=== PATIENT | female | born 1940 | race Caucasian/White ===

== ENCOUNTER → 2016-07-25 | Outpatient (CLI) | payer MEDICARE ==
[~2016-07-25] MED LIST: BENADRYL CRM, 230 GM TP; ECOTRIN-DPS325 MG PO; LOPRESSOR DPS50 MG PO; MIRALAX PACKET17 GM PO; PROTONIX40 MG PO; RANEXA500 MG PO; SENOKOT S1 TAB PO; TYLENOL DPS325 MG PO; ULTRAM DPS50 MG PO; XANAX DPS0.5 MG PO
== END | disposition home or self-care (01) ==
LOC: PTH.S 08:11
DX: Z01.818 Encounter for other preprocedural examination (principal); I10 Essential (primary) hypertension

== ENCOUNTER 2016-08-01 08:26 | Inpatient (IN) | payer MEDICARE ==
[~2016-08-01] VITALS: Ht 156.2 cm; Wt 49.4 kg
--- NOTE | ~2016-08-01 | OR ---
ADMIT: 08/19/2016 RM/LOC: [facility] MR#: [id number] [facility]#: [id number] [id number] [place], [place] [address] OPP, BERNA Zavala [address] [place] [address] Operative/Delivery Room Report SEX: F AGE: 76 : 1940 SURGERY DATE: 08/19/2016 SURGEON: Rusty Franco MD PREOPERATIVE DIAGNOSIS: Left hip avascular necrosis, status post prior femoral neck fracture with hip pinning. POSTOPERATIVE DIAGNOSIS: Left hip avascular necrosis, status post prior femoral neck fracture with hip pinning. PROCEDURES: 1. Left total hip arthroplasty. 2. Left hip hardware removal. WRAPPER COUNTER: 1. Sarabjit Aguilar PA-C. 2. NEDA Mary. COMPLICATIONS: None. ESTIMATED BLOOD LOSS: 200 mL. COMPONENTS: 1. A size 48 mm Gription pinnacle cup. 2. One acetabular screw. 3. A 32 mm neutral AltrX liner. 4. A size 4 standard offset cemented stem. 5. A +5 x 32 mm metal head. DESCRIPTION OF PROCEDURE: The patient was taken to the operating room, received a spinal anesthetic, placed in lateral decubitus position. Left hip was prepped and draped in a fashion, it was very stiff, a posterior approach was performed, dissection was carried through subcutaneous tissue. The tensor fascia was divided in the gluteus nancy. We then identified the 7.3 cannulated screws just below the trochanter. We identified the three screw heads. At that point, we did a standard posterior approach to the hip and released the piriformis tendon capsule and external rotators along the capsular flap. At that point, we could dislocate the femoral head. She had a large amount of collapse of the head with one screw penetrating the joint. At that point, then relocated the hip. Used a screwdriver and removed the three 7.3 cannulated screws with no undue difficulty. At that point, we made a preliminary femoral neck cut based on templating. Opened up the piriformis fossa with a reamer. We then just gently just reamed the canal to find the canal. We then sequentially broached up to a size 4 broach left in the canal to protect it. At that point, we exposed the acetabulum and removed the remaining labrum. She had significant degenerative changes throughout the cup. We then reamed up to a 47 mm reamer. Impacted a 48 mm Gription cup with ADMIT: 08/19/2016 RM/LOC: [facility] MR#: [id number] [address] [address] OP, BERNA Zavala [address] [place] [address] Operative/Delivery Room Report SEX: F AGE: 76 : 1940 excellent press fit. We then placed one supplemental screw for fixation. At that point, we did a blocks around the cup with our intraarticular block. We then put in the real neutral AltrX liner with hole eliminator. At that point, re-exposed the femur, removed the broach, placed cement restrictor distally. Pulse lavaged out the canal, filled the canal in retrograde fashion with two batches of cement. Cemented a size 4 standard offset [place] stem. Once the cement was hard, we impacted a +5 x 32 mm head. Reduced the hip and was again found to be stable. We repaired the posterior capsular structures with #5 Tycron. I repaired our vascular with 0 Vicryl, closed the tensor fascia with interrupted and running 0 Vicryl. Deep subcu with 0 Vicryl, subcutaneous with 2-0 Vicryl subcuticular stitch followed by Prineo hip wound dressing. The patient was taken to the recovery room in stable condition. No complications. Rusty Franco MD/ carlo JOB #: [id number] CC: Rusty Franco, Attending Physician Thanh Edge, Family Physician
[2016-09-03] MEDS ORDERED: TYLENOL DPS325 MG PO (14:12)
[2016-09-03] MEDS ORDERED: LOPRESSOR DPS50 MG PO (14:12)
[2016-09-03] MEDS ORDERED: PROTONIX40 MG PO (14:12)
[2016-09-03] MEDS ORDERED: RANEXA500 MG PO (14:12)
[2016-09-03] MEDS ORDERED: ECOTRIN-DPS325 MG PO (14:12)
[2016-09-03] MEDS ORDERED: MIRALAX PACKET17 GM PO (14:12)
[2016-09-03] MEDS ORDERED: SENOKOT S1 TAB PO (14:13)
[2016-09-03] MEDS ORDERED: XANAX DPS0.5 MG PO (14:13)
[2016-09-03] MEDS ORDERED: BENADRYL CRM, 230 GM TP (14:13)
[2016-09-03] MEDS ORDERED: ULTRAM DPS50 MG PO (14:13)
--- NOTE | 2016-09-03 16:20 | HP ---
ADMIT: 08/19/2016 RM/LOC: W.06 [facility] MR#: [id number] [facility] [address] [address] OPP, BERNA Zavala [address] [place] [address] Pre-OP History and Physical SEX: F AGE: 76 : 1940 DATE OF SERVICE: PRIMARY CHIEF COMPLAINT: Hip pain. HISTORY OF PRESENT ILLNESS: The patient is a 76-year-old female having significant hip discomfort. She had a left hip pinning 3 years ago. She was initially seen about 6 weeks postop, but never followed up. She has had increasing left hip pain since then. She was seen in clinic, found to have left hip avascular necrosis with collapse of her femoral head, now being admitted for left total hip arthroplasty. PAST MEDICAL HISTORY: Included avascular necrosis, coronary artery disease, and hypertension. MEDICATIONS: Include; 1. Plavix. 2. Protonix. 3. Ibuprofen. 4. Dulcolax. 5. Maalox. 6. Albuterol. 7. Celexa. 8. Ventolin. 9. Lopressor. 10.Lisinopril. 11.Crestor. 12.Vitamin C. 13.Aspirin. ALLERGIES: SULFA AND ATORVASTATIN. SOCIAL HISTORY: Denies any significant tobacco or alcohol use. REVIEW OF SYSTEMS: Negative. PHYSICAL EXAMINATION: Elderly female, walks with assistance of 2 canes. She has very stiff hips bilaterally, only can internally rotate to 10 degrees, externally rotate 10, flex to 90 with a large amount of pain. Legs neurovascularly intact. ADMIT: 08/19/2016 RM/LOC: W.06 [facility] MR#: [id number] [address] [address] OPP, BERNA Zavala [address] [place], [place] [address] Pre-OP History and Physical SEX: F AGE: 76 : 1940 DIAGNOSTIC DATA: X-rays, AP and lateral, shows a left hip avascular necrosis, collapsed femoral head, screws penetrating through the femoral head. IMPRESSION: 1. Left hip avascular necrosis with femoral head collapse, status post hip pinning. 2. Advanced right hip arthritis. PLAN: From the left hip standpoint, she has failed conservative care. Plan on removing the screws and to do a left standard total hip arthroplasty. She is aware of risks, benefits, and options and agreed to proceed. She has been seen and cleared from a medical standpoint by Dr. Cornelius in Cardiology. Rusty Franco MD/ carlo JOB #: [id number] CC: Rusty Franco, Attending Physician Thanh Edge, Family Physician
--- NOTE | 2016-09-06 08:57 | DS ---
ADMIT: 08/19/2016 RM/LOC: 508 [facility] MR#: [id number] [facility]#: [id number] [address] [place], [place] [address] OPP, BERNA Zavala [address] [place] [address] General Discharge Summary SEX: F AGE: 76 : 1940 ADMISSION DATE: 08/19/2016 DISCHARGE DATE: 08/22/2016 REASON FOR ADMISSION: Left total hip arthroplasty to treat avascular necrosis of the left hip with collapse of femoral head. ACTIVE MEDICAL PROBLEMS: Anxiety, coronary artery disease, stenosis of the carotid artery, dementia, hypertension, hyperlipidemia, and spinal stenosis. PREOPERATIVE DIAGNOSIS: Left hip avascular necrosis status post prior femoral neck fracture with hip pinning. POSTOPERATIVE DIAGNOSIS: Left hip avascular necrosis status post prior femoral neck fracture with hip pinning. PROCEDURES PERFORMED: 1. Left hip hardware removal. 2. Left total hip arthroplasty. ASSISTANTS: 1. Sarabjit Aguilar PA-C. 2. NEDA Mary. COMPLICATIONS: None. ESTIMATED BLOOD LOSS: 200 mL. ANESTHESIA: Spinal HOSPITAL COURSE: The patient was admitted on 08/19/2016, for left total hip arthroplasty done by Dr. Franco without any complications. The patient tolerated the procedure well. Postoperatively, the patient did well with pain control. She did as expected suffer from acute blood loss anemia. Her hemoglobin dropped to 8.0 on 08/22/2016, but she remained hemodynamically stable and did not require blood transfusion. She qualified for penitentiary unit provided by [facility]. By postoperative day #3, she was safe, stable, and ready for discharge to the penitentiary unit with plans for followup in 2 weeks. DISCHARGE MEDICATIONS: 1. Ecotrin 325 mg daily. 2. Lopressor 25 mg twice a day. 3. MiraLax 17 g daily. 4. Protonix 40 mg daily. 5. Ranexa 500 mg daily. ADMIT: 08/19/2016 RM/LOC: 508 [facility] MR#: [id number] [facility] [address] [place], [place] [address] OPP, BERNA Zavala [address] [place] [address] General Discharge Summary SEX: F AGE: 76 : 1940 6. Senokot 2 tablets at night. 7. Tylenol 325 mg 2 tablets every 6 hours as needed. 8. Ultram 50 mg every 6 hours as needed for pain. 9. Maalox 30 mL every 6 hours as needed. 10.Milk of magnesia 10 mL daily as needed. 11.Oxycodone IR 5 mg 1 to 2 tablets every 8 hours as needed for breakthrough pain. DISCHARGE INSTRUCTIONS: The patient was discharged to penitentiary unit with plans for physical therapy exercises in the unit. Follow up in the orthopedic office in 2 weeks for wound check, in 6 weeks with x-ray. Follow up with primary care as directed. NEDA Mary / Rusty Franco MD / carlo JOB #: [id number] CC: Rusty Franco MD, Attending Physician Thanh Edge MD, Family Physician
== END 2016-08-22 12:40 | DRG 470 ==
LOC: 5MS 08-19 07:19 → WOR 08-19 07:19 → 5MS 08-19 14:00
PROVIDERS: ADMIT Orthopaedic Surgery
PROC: 0SPB04Z Removal of Internal Fixation Device from Left Hip Joint, Open Approach (ICD-10-PCS; principal; 2016-08-19)
PROC: 0SRB029 Replacement of Left Hip Joint with Metal on Polyethylene Synthetic Substitute, Cemented, Open Approach (ICD-10-PCS; principal; 2016-08-19)
DX: M87.052 Idiopathic aseptic necrosis of left femur (principal); F01.51 Vascular dementia, unspecified severity, with behavioral disturbance; D62 Acute posthemorrhagic anemia; I10 Essential (primary) hypertension; I25.10 Atherosclerotic heart disease of native coronary artery without angina pectoris; F41.9 Anxiety disorder, unspecified; I65.29 Occlusion and stenosis of unspecified carotid artery; E78.5 Hyperlipidemia, unspecified; M48.06 Spinal stenosis, lumbar region; Z95.1 Presence of aortocoronary bypass graft; Z87.891 Personal history of nicotine dependence; Z79.82 Long term (current) use of aspirin; I25.2 Old myocardial infarction; Z79.02 Long term (current) use of antithrombotics/antiplatelets

== ENCOUNTER 2016-08-22 11:33 | Inpatient (IN) | payer MEDICARE ==
[~2016-08-22] VITALS: Ht 156.2 cm; Wt 49.0 kg
--- NOTE | 2016-08-22 14:55 | NUR ---
PATIENT NOTE BERNA HAS BEEN ADMITTED TO [facility] SKILLED CARE FOR SHORT TERM REHAB FOLLOWING LEFT TOTAL HIP SURGERY. SHE WILL BE HERE UNDER HER MEDICARE BENEFITS WITH PHYSICAL AND OCCUPATIONAL THERAPY THE SKILLED SERVICES. BERNA LIVES ALONE IN [place] AND HER GOAL/PLAN IS TO RETURN. SHE IS ALERT, ORIENTED AND VERY PLEASANT 76 YEAR OLD. SOCIAL WORK WILL FOLLOW FOR D/C PLANNING AND FOR CONCERNS THAT MAY ARISE.
--- NOTE | 2016-08-27 08:30 | NUR ---
MDS OBSERVATION/INTERACTION: PER PT. REQUEST, ASSISTED PT. WITH AMBULATING TO BATHROOM WITH MIN ASSIST OF ONE FOR GETTING TO A STANDING POSITION FROM EDGE OF BED. GAIT IS SLOW BUT STEADY. PT. IS INDEPENDENT ONCE IN BATHROOM. ALERT AND APPROPRIATE. TALKATIVE AND PLEASENT. OFFERS NO C/O OF NEED FOR PAIN MEDICATION AT THIS TIME. AT 1350, PT. AMBULATES IN HALLWAY WITH MIN ASSIST FROM P.T. STAFF. GAIT IS STEADY. UTILIZES WALKER AND GAIT BELT.
--- NOTE | 2016-09-02 12:30 | NUR ---
DISCHARGE NOTE: PT AND SISTER PRESENT IN ROOM. WHILE DOING DISCHARGE TEACHING PT VOICES THAT MEDS ARE ALL WRONG AND THAT SHE DOES NOT TAKE THEM. REMINDED PT THAT THE DR HAS ORDERED THESE MEDS AND WANTS HER TO TAKE THEM. SHE VOICES THAT "HE JUST FORGOT THAT THESE PILLS MAKE ME SICK. AND I HAVE NOT TAKEN FOR MONTHS." TRIED TO REVIEW HER HOME MED LIST AND SHE VOICES THAT "THAT IS SOMEONE ELSES". EACH TIME THIS NURSE ATTEMPTED TO DO TEACHING SHE INTERRUPTED AND VOICED THAT IT WAS WRONG. HER SISTER TOLD PT "JUST SIGN THE PAPERWORK AND LETS GET OUT OF HERE AND YOU CAN DO WHAT YOU WANT AT HOME. THEY ALWAYS TRY TO MAKE YOU TAKE MORE PILLS THAN YOU NEED." INFORMED PT AND SISTER THAT WE NEED TO GET THIS TAKEN CARE OF BEFORE THE PT LEAVES. SUSTER VOICES "WE ARE GOING OUT TO LUNCH AND WE NEED TO LEAVE."DENIES THAT THEY HAVE TO BE TO LUNCH AT A DESIGNATED TIME JUST WANT TO LEAVE. PT VOICES THAT SHE WILL GO TO DR OFFICE AND TALK TO HIM AT A LATER DATE. DISCUSSED WITH DIRECTOR AND CLINICAL COORDINATER AND THEY VOICED TO LET PT SIGN PAPER WORK AND LET HER DISCHARGE. PAPER WORK SIGNED AND PT DISCHARGED
--- NOTE | 2016-09-02 13:54 | NUR ---
PATIENT NOTE RECEIVED A CALL 09/01 FROM PT.'S SON IN LAW STATING THAT HE WOULD LIKE TO HAVE BERNA D/C TO HOME 09/02. HE DOES NOT HAVE ANY CONCERNS WITH HER CARE INFACT HE WAS THANKFUL AND APPRECIATIVE. HE STATED, "SHE WANTS TO GO HOME SO BAD THAT SHE IS CALLING ME SEVERAL TIMES A DAY." FROM A PHYSICAL STAND POINT SHE IS READY TO D/C TO HOME WITH CONTINUED THERAPY. HER COGNITIVE STATUS IS NO DIFFERENT THEN WHEN SHE WAS HOME PRIOR TO COMING IN FOR HER HIP SURGERY ACCORDING TO FAMILY. I VISITED WITH SHARIFA ABOUT OUTPT. THERAPY VS. HHC SERVICES AND HE CHOSE HHC AT THIS TIME DUE TO TRANSPORTATION ISSUES. HHC OPTIONS GIVEN AND [facility] WAS CHOSEN AND REFERRAL MADE TO [facility]. BERNA DOES HAVE HER OWN WALKER. SHARIFA ALONG WITH OTHER FAMILY MEMBERS DO TAKE HER TO GET GROCERIES AND TO ALL APPOINTMENTS.
[2016-09-03] MEDS ORDERED: RANEXA500 MG PO (14:12)
[2016-09-03] MEDS ORDERED: TYLENOL DPS325 MG PO (14:12)
[2016-09-03] MEDS ORDERED: MIRALAX PACKET17 GM PO (14:12)
[2016-09-03] MEDS ORDERED: LOPRESSOR DPS50 MG PO (14:12)
[2016-09-03] MEDS ORDERED: PROTONIX40 MG PO (14:12)
[2016-09-03] MEDS ORDERED: ECOTRIN-DPS325 MG PO (14:12)
[2016-09-03] MEDS ORDERED: BENADRYL CRM, 230 GM TP (14:13)
[2016-09-03] MEDS ORDERED: XANAX DPS0.5 MG PO (14:13)
[2016-09-03] MEDS ORDERED: ULTRAM DPS50 MG PO (14:13)
[2016-09-03] MEDS ORDERED: SENOKOT S1 TAB PO (14:13)
== END 2016-09-02 12:00 | disposition home health service (06) | DRG 560 ==
LOC: SNU 13:09
PROVIDERS: ADMIT Internal Medicine
PROC: F07M3ZZ Motor Function Treatment of Musculoskeletal System - Whole Body (ICD-10-PCS; principal; 2016-08-25)
PROC: F08Z4ZZ Home Management Treatment (ICD-10-PCS; principal; 2016-08-25)
DX: Z47.1 Aftercare following joint replacement surgery (principal); D62 Acute posthemorrhagic anemia; F03.90 Unspecified dementia, unspecified severity, without behavioral disturbance, psychotic disturbance, mood disturbance, and anxiety; D64.9 Anemia, unspecified; I65.29 Occlusion and stenosis of unspecified carotid artery; Z23 Encounter for immunization; I25.10 Atherosclerotic heart disease of native coronary artery without angina pectoris; I10 Essential (primary) hypertension; F41.9 Anxiety disorder, unspecified; E78.5 Hyperlipidemia, unspecified; M48.00 Spinal stenosis, site unspecified; Z11.1 Encounter for screening for respiratory tuberculosis

== ENCOUNTER 2016-08-30 15:45 | Emergency (ER) | payer MEDICARE ==
--- NOTE | 2016-08-31 13:05 | ER ---
ADMIT: 08/30/2016 RM/LOC: ER [facility] MR#: [id number] [id number] [place], [place] [address] OPP, BERNA Zavala [address] [place] [address] Emergency Room Report SEX: F AGE: 76 : 1940 DATE: 08/30/2016 HISTORY OF PRESENT ILLNESS: The patient is a 76-year-old female with a past medical history of hypertension, dementia, coronary artery disease, anxiety, and triple bypass, non-STEMI, and also recent hip replacement on the right side 2 weeks ago, came to the ER with chief complaint of feeling confused and presyncope for 5 minutes. The patient [place] and after few minutes, she felt dizzy and allegedly she was sitting on a chair and she was confused and out for 5 minutes per observers. The patient could not recall exactly what happened, but after that she was alert and oriented and was ambulating without difficulty and did not notice any focal deficits. The patient also did not fall and did have any trauma. The patient denies any similar symptoms in the past like this. The patient denies any chest pain, shortness of breath, headaches, or visual changes PHYSICAL EXAMINATION: VITAL SIGNS: In the ER, the patient was afebrile and stable vitals. Negative orthostatics. HEENT: There are no signs of trauma, no nystagmus, and pupils are 3 mm and reactive to light. NEUROLOGICAL: Motor is grossly normal and sensory is also normal. The patient walks with a walker. Gait has not changed and Romberg is negative. Cranial nerves are also normal. NECK: In the neck on the left side, there is scar of the left endarterectomy of the carotid. I did not hear any bruit on the neck. LUNGS: Clear bilaterally. HEART: Normal heart sounds without any murmurs or gallops. ABDOMEN: Soft. EXTREMITIES: I did not notice any swelling. EMERGENCY ROOM COURSE: Concerning the patient's presentation, EKG was done which showed heart rate of 84, and it was normal sinus rhythm. Chest x-ray was negative for any abnormalities. CT of the head did not show any acute changes and per chart today has a previous history of left internal carotid artery stenosis and endarterectomy. Ultrasound of the neck showed left internal carotid artery stenosis of 40% to 59%. The patient has sodium of ADMIT: 08/30/2016 RM/LOC: [facility] MR#: [id number] [address] [address] [place], BERNA Zavala [address] [place] [address] Emergency Room Report SEX: F AGE: 76 : 1940 141, with potassium of 3.9, glucose of 198. The troponin level was negative and D-dimer was elevated to 4.2, although the patient had recent surgery, but it was about 2 weeks ago and the patient is high risk for PE, which could present just as a syncope. CT of the chest was negative for PE. After I talked to Dr. Russell concerning the left carotid artery stenosis of 40% to 59%, we both agreed that for the patient there is no need for any urgent or emergent surgical intervention and the patient can be out followed up as an outpatient. The patient was advised to follow up with the primary doctor as an outpatient and was advised to follow up this week and provide them with the result of the ultrasound of the neck just for records. The patient was stable and symptom-free and was discharged to the nursing care facility. The patient was advised to avoid the warm weather outside tomorrow. Devaughn Fisher MD/ carlo JOB #: [id number] CC: Pipe Mccauley MD, Attending Physician Thanh Edge MD, Family Physician
[2016-09-03] MEDS ORDERED: RANEXA500 MG PO (14:12)
[2016-09-03] MEDS ORDERED: TYLENOL DPS325 MG PO (14:12)
[2016-09-03] MEDS ORDERED: PROTONIX40 MG PO (14:12)
[2016-09-03] MEDS ORDERED: LOPRESSOR DPS50 MG PO (14:12)
[2016-09-03] MEDS ORDERED: MIRALAX PACKET17 GM PO (14:12)
[2016-09-03] MEDS ORDERED: ECOTRIN-DPS325 MG PO (14:12)
[2016-09-03] MEDS ORDERED: ULTRAM DPS50 MG PO (14:13)
[2016-09-03] MEDS ORDERED: XANAX DPS0.5 MG PO (14:13)
[2016-09-03] MEDS ORDERED: SENOKOT S1 TAB PO (14:13)
[2016-09-03] MEDS ORDERED: BENADRYL CRM, 230 GM TP (14:13)
== END 2016-08-30 19:50 | disposition home or self-care (01) ==
LOC: ER 15:45
DX: R42 Dizziness and giddiness (principal); I10 Essential (primary) hypertension; I25.10 Atherosclerotic heart disease of native coronary artery without angina pectoris; F41.9 Anxiety disorder, unspecified; I25.2 Old myocardial infarction; Z95.1 Presence of aortocoronary bypass graft; Z90.710 Acquired absence of both cervix and uterus; Z88.2 Allergy status to sulfonamides; Z88.8 Allergy status to other drugs, medicaments and biological substances; Z79.82 Long term (current) use of aspirin; Z79.899 Other long term (current) drug therapy